=== PATIENT | male | born 1990 | race Caucasian/White ===

== ENCOUNTER 2021-01-12 16:41 | Emergency (ER) | payer OTHER, SELFPAY ==
[2021-01-12 16:45] VITALS: BP 145/97; PULSE 101; RESP 20; TEMP 37.2; O2SAT 100
--- NOTE | 2021-01-12 16:53 | ED.GENADULT ---
HPI - General Adult General Chief complaint: Nausea/Vomiting/Diarrhea Stated complaint: AMB Source: patient, EMS and RN notes reviewed Mode of arrival: ambulatory Limitations: no limitations History of Present Illness HPI narrative: Patient presents after being let out of snf and at [facility]. He called for an ambulance and told them he did not want to go [place] that he wanted to come to this hospital. He has never been to this hospital before. He states that he is having withdrawal from fentanyl that he does daily. He has not had any because he has been incarcerated for the last 5 days. He got out today at noon. Says that he is having vomiting and and some cold chills. Onset (ago): day(s) (5) Pain Consistency: intermittent Relieving factors: none Exacerbating factors: none Associated symptoms: loss of appetite Related Data Home Medications Medication Instructions Recorded Confirmed No Home Medications 01/12/21 01/12/21 Allergies Allergy/AdvReac Type Severity Reaction Status Date / Time No Known Allergies Allergy Verified 01/12/21 16:57 PMFSH Past Medical History Medical History (Updated 01/12/21 @ 18:15 by Adria Mejia MD) Opioid abuse Surgical History Surgical History (Updated 01/12/21 @ 18:15 by Adria Mejia MD) No pertinent past surgical history Social History Social History (Updated 01/12/21 @ 18:15 by Adria Mejia MD) Substance use: current Substance use type: opiates Exam Const: General: healthy appearing and no acute distress Nutritional Appearance: well nourished Orientation/consciousness: patient oriented x3 HENMT: Head: normal to inspection Ears: external ears normal Face and sinus: normal facial exam Mouth: Yes moist mucous membranes Eyes: Conjunctivae: conjunctivae normal Pupils: Dilated pupils (mild) bilaterally EOM: EOMs intact bilaterally Neck: Neck: normal visual inspection Resp: Effort & Inspection: normal respiratory effort Auscultation: clear to auscultation bilaterally Cardio: Rate: regular rate Rhythm: regular rhythm GI: GI Palp: Yes Soft to palpation and No Tenderness to palpation present (GI) Auscultation: normal bowel sounds Back/Spine/Pelvis: Cervical Spine: cervical ROM normal Thoracic/Lumbar Spine: thoraco-lumbar ROM normal Skin: General skin exam: normal color Rashes: no rashes Neuro: General: patient oriented x3, moves all extremities, no meningeal signs and no focal motor deficits Speech: normal speech Gait exam (Neuro): Normal gait present Extrem: General: normal to inspection Psych: Appearance: grossly normal Speech and movement: Clear speech present Affect: Indifferent affect present and Blunted affect present Attitude: cooperative Course Course Emergency Course: shortly after arrival patient states that his right is here and that he wants to leave AMA. He does not want any further treatment. He was started on some IV fluids due to his vomiting but he asked that it be stopped and he did not want any further treatment. Vital Signs Vital signs: Vital Signs Temperature 37.2 C 01/12/21 16:45 Pulse Rate 101 H 01/12/21 16:45 Respiratory Rate 20 01/12/21 16:45 Blood Pressure 145/97 H 01/12/21 16:45 Pulse Oximetry 100 01/12/21 16:45 Temperature 37.2 C 01/12/21 16:45 Pulse Rate 101 H 01/12/21 16:45 Respiratory Rate 20 01/12/21 16:45 Blood Pressure 145/97 H 01/12/21 16:45 Pulse Oximetry 100 01/12/21 16:45 Medical Decision Making Vital Signs Vital Signs: Vital Signs Temperature 37.2 C 01/12/21 16:45 Pulse Rate 101 H 01/12/21 16:45 Respiratory Rate 20 01/12/21 16:45 Blood Pressure 145/97 H 01/12/21 16:45 Pulse Oximetry 100 01/12/21 16:45 Temperature 37.2 C 01/12/21 16:45 Pulse Rate 101 H 01/12/21 16:45 Respiratory Rate 20 01/12/21 16:45 Blood Pressure 145/97 H 01/12/21 16:45 Pulse Oximetry 100 01/12/21 16:45 Discharge Plan Discharge C
[2021-01-12] MEDS: SODIUM CHLORIDE 0.9% IV 1,000 ML 999 ML IV CONT (16:55)
== END 2021-01-12 17:10 | disposition left against medical advice (07) ==
LOC: CHSED 16:47
PROVIDERS: Emergency Provider Emergency Medicine
DX: F11.23 Opioid dependence with withdrawal (principal)
CPT/HCPCS: 99282; J7030